=== PATIENT | female | born 1940 | race Caucasian/White ===

== ENCOUNTER → 2018-02-25 | Outpatient (REF) | payer MEDICARE, OTHER ==
[~2018-02-25] MED LIST: ACET-1718 PO; ADVIL; ALEN70TA43 PO; ASCO-182 PO; ASCO-504 PO; CALC-734 PO; CALC500T6 PO; CEP500 PO; CEPH-13 PO; CEPH250C37 PO; CHOL100052 PO; CHOL100062 PO; DOCU-416 PO; GUAI-602 PO; HYDR-317 PO; HYDR-318 PO; HYDR-4309 PO; IBUP200C74 PO; IBUP600T22 PO; LEVO-85 PO; OMEG1CAP99 PO; OMEG500C7 PO; OXYB10TA21 PO; PAR20 PO; PARO30TA71 PO; PER PO; PHEN200T32 PO; TAMO20TA24 PO
== END ==
LOC: ZZSENDIN 12:00
PROVIDERS: ATTEND Urology
DX: C67.9 Malignant neoplasm of bladder, unspecified (principal); R31.9 Hematuria, unspecified
CPT/HCPCS: 88108

== ENCOUNTER 2018-03-03 13:18 | Outpatient (RCR) | payer MEDICARE, OTHER ==
[2015-09-01 13:41] VITALS: BP 123/58
[~2018-03-03 13:18] MED LIST changes: -OMEG1CAP99 PO
[2018-03-04] MEDS ORDERED: OMEG1CAP99 PO (08:25)
[2018-03-05] MEDS ORDERED: HYDR-4309 PO (17:13)
[2018-03-05] MEDS ORDERED: PHEN200T32 PO (17:13)
[2018-03-05] MEDS ORDERED: DOCU-416 PO (17:14)
== END 2018-03-06 14:13 | disposition home or self-care (01) ==
LOC: RAON 13:18
PROVIDERS: ATTEND Radiology Radiation Oncology
DX: C50.911 Malignant neoplasm of unspecified site of right female breast (principal); Z17.0 Estrogen receptor positive status [ER+]; M81.0 Age-related osteoporosis without current pathological fracture; F32.9 Major depressive disorder, single episode, unspecified; E78.00 Pure hypercholesterolemia, unspecified; Z85.828 Personal history of other malignant neoplasm of skin; Z72.0 Tobacco use; Z87.448 Personal history of other diseases of urinary system; F17.200 Nicotine dependence, unspecified, uncomplicated; Z92.3 Personal history of irradiation
CPT/HCPCS: 99212

== ENCOUNTER 2018-03-05 01:19 | Day surgery (SDC) | payer MEDICARE, OTHER ==
[2018-03-03 15:14] LABS: PLATELET COUNT, AUTOMATED 166 K/uL (150-450)
--- NOTE | 2018-03-04 14:45 | HISTORY AND PHYSICAL ---
DATE OF ADMISSION: March 05, 2018 CHIEF COMPLAINT Bladder cancer. 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 She presented with cystoscopy with transurethral resection of these tumors on September 15, 2017. She underwent six week BCG induction treatment from October 15, 2017 through November 19, 2017. Her followup surveillance cystoscopy was performed on February 25, which did reveal approximately 2-3 mm small papillary lesion on the right lateral wall, but was otherwise normal. She is now being brought to the operating room for planned transurethral resection and biopsy of this lesion. Of note, a bladder cytology was obtained and returned no evidence of malignancy. Her last upper tract study was performed in October at her original presentation. She did not have a post-resection mitomycin C after her first resection secondary to concerns of possible tenuous resection site after deep biopsy. PAST MEDICAL HISTORY * Hypercholesterolemia. * Depression. * Breast cancer. * Breast biopsy. * Cataract surgery. * Hemorrhoidectomy. * Hernia. * Thyroid lumpectomy. * Bilateral rotator cuff surgery. * Tonsillectomy. * Colonoscopy. * Skin cancer resection. * Transurethral resection of six papillary bladder tumors on February 13, 2017 of low grade and noninvasive. CURRENT MEDICATIONS * Calcium. * Multivitamin. * Plavix. * Tamoxifen. ALLERGIES OXYCODONE. SOCIAL HISTORY Patient lives in [place], [place]. She has a one pack a day smoking history for 45 years, and she is a . REVIEW OF SYSTEMS Patient denies chest pain, productive cough, fever, chills, nausea, vomiting, gross hematuria, flank pain, change in weight, bleeding disorder or chronic headaches. PHYSICAL EXAMINATION GENERAL: Patient is a well-developed, elderly white female in no acute distress. HEENT: Exam is normocephalic, atraumatic. CHEST: Clear to auscultation bilaterally. CARDIOVASCULAR: Regular rate and rhythm. ABDOMINAL: Soft, nontender. No masses are palpated. : Exam is deferred to the OR. EXTREMITIES: Without clubbing, cyanosis or edema. NEUROLOGIC: Exam is nonfocal. IMPRESSION A 77-year-old white female with a history of intermediate risk of transitional cell carcinoma of the bladder diagnosed in August of this past year, status post six weeks induction treatment with BCG, now with questionable recurrence on right lateral. PLAN We will perform anesthetic cystoscopy, possible transurethral resection and/or biopsy, exam under anesthesia, and possible mitomycin C installation. MTDD
[~2018-03-05] VITALS: Ht 167.6 cm; Wt 48.5 kg
[~2018-03-05 01:19] MED LIST changes: +OMEG1CAP99 PO
[2018-03-05] MEDS ORDERED: LIDOCAINE/SOD BICARB 8.4% SYR ID ONE (11:35)
[2018-03-05] MEDS ORDERED: NORMOSOL R SOLN(*) 1000 ML BAG 1,000 ML IV PRN (11:35)
[2018-03-05] MEDS ORDERED: ceFAZolin(*) 1 GM VIAL 1 GM in NS(*) 0.9% 100 ML ADDVANT BAG 100 ML IVPB ONE (11:35)
[2018-03-05] MEDS ORDERED: MIDAZOLAM 2 MG/2 ML VIAL IVP PRN (11:35)
[2018-03-05] MEDS ORDERED: FAMOTIDINE 20 MG TAB PO ONE (11:35)
[2018-03-05 14:05] VITALS: BP 155/73
[2018-03-05] MEDS ORDERED: fentaNYL CITR 100 MCG/2 ML AMP ONE (14:43)
[2018-03-05] MEDS ORDERED: PROPOFOL EMUL(*) 10MG/ML 20 ML 20 ML ONE (14:43)
[2018-03-05] MEDS ORDERED: DEXAMETHASONE SOD 4 MG/ML VIAL ONE (14:43)
[2018-03-05] MEDS ORDERED: ONDANSETRON 4 MG/2 ML VIAL ONE (14:43)
[2018-03-05] MEDS ORDERED: LIDOCAINE MPF 1% 5 ML VIAL ONE (14:43)
[2018-03-05] MEDS ORDERED: KETAMINE HCL 200 MG/20 ML MDV ONE (16:00)
[2018-03-05] MEDS ORDERED: BELLADONNA ALK/OPIUM 60MG SUPP PR ONE (16:12)
[2018-03-05] MEDS ORDERED: mitoMYcin 20 MG VIAL 40 MG in WATER STERILE FOR INJ 50 ML VL 40 ML IR ONE (16:40)
[2018-03-05 17:00] VITALS: BP 122/51
[2018-03-05] MEDS ORDERED: HYDR-4309 PO (17:13)
[2018-03-05] MEDS ORDERED: PHEN200T32 PO (17:13)
[2018-03-05] MEDS ORDERED: DOCU-416 PO (17:14)
[2018-03-05 17:20] VITALS: BP 122/51
[2018-03-05 17:44] VITALS: BP 120/99
[2018-03-05 17:46] VITALS: BP 118/68
--- NOTE | 2018-03-05 23:16 | OPERATIVE REPORT 1 ---
EVENT DATE: March 05, 2018 SURGEON: Richie Fonseca MD ANESTHESIOLOGIST: Luiz Hoover MD ANESTHESIA: General anesthetic. PREOPERATIVE DIAGNOSIS History of transitional carcinoma of the bladder, now with a small papillary lesion, right lateral wall. POSTOPERATIVE DIAGNOSIS History of transitional carcinoma of the bladder, now with a small papillary lesion, right lateral wall. PROCEDURES PERFORMED 1. Anesthetic cystoscopy. 2. Cold cup biopsy of right lateral wall bladder tumor with fulguration of site. 3. Mitomycin-C intravesical instillation in recovery room. ESTIMATED BLOOD LOSS 5 mL INTRAVENOUS FLUIDS Crystalloids. DRAINS 16-Tamazight Armstrong catheter. COMPLICATIONS None. CONDITION Patient taken to recovery room awake, in stable condition. STATEMENT OF MEDICAL NECESSITY Patient is a 77-year-old white female who was originally found to have six papillary bladder tumors in October of this past year. They were all low grade. However, her number and size of the tumor would put her at an intermittent risk, and therefore, she underwent intravesical BCG induction treatment with six weekly instillations. On her followup surveillance cystoscopy, she was noted to have a very small papillary lesion on the right lateral wall; otherwise normal. Cytology was performed which was normal. She is now being brought to the operating room for planned anesthetic cystoscopy and biopsy with removal of this lesion. DESCRIPTION OF PROCEDURE PERFORMED Patient was brought to the operating room, and after general anesthetic was obtained, she was placed in the dorsal lithotomy position and prepped and draped in the usual sterile manner. Anesthetic cystoscopy was performed with a 21-Tamazight rigid sheath and both the 30- and 70-degree lenses. She had slit- like ureteral orifices, both effluxing clear urine. Her previous TUR scar was noted just superolateral to the right ureteral orifice. The previously noted small papillary bladder lesion was noted on the right lateral wall. It was approximately 2 to 3 mm in size on a pedunculated base. The remainder of the bladder appeared normal with no evidence of erythema or other changes after a thorough inspection. At this point, the cold cup biopsy forceps were introduced , and the lesion was removed with one grasp with the biopsy. It was then saved and sent for permanent analysis. At this point, the continuous flow resectoscope sheath was placed, and the small loop was used to fulgurate the base of the biopsy. The bladder was again inspected. No other lesions or injuries were noted. The scope was removed and a 16-Tamazight Armstrong catheter placed with 10 mL in the balloon. A B and O suppository was given per rectum at the conclusion of the case. She was awakened in the operating room and taken to the recovery area. PLAN The plan will be to instill 40 mg of mitomycin-C in 40 mL of water via her Armstrong catheter, clamp this catheter for one hour, and drain it before she is discharged. We will discharge her home on [place], [place], and [place]. We will plan to see her in the Urology Clinic in approximately one to two weeks to review her pathology and discuss her followup plan. FAISAL
== END 2018-03-05 17:05 | disposition home or self-care (01) ==
LOC: OR 01:19
PROVIDERS: ATTEND Urology
DX: C67.2 Malignant neoplasm of lateral wall of bladder (principal); E78.00 Pure hypercholesterolemia, unspecified; F32.9 Major depressive disorder, single episode, unspecified; Z87.891 Personal history of nicotine dependence; Z85.3 Personal history of malignant neoplasm of breast; Z85.828 Personal history of other malignant neoplasm of skin; Z88.5 Allergy status to narcotic agent
CPT/HCPCS: 36415; 51720; 52235; 81001; 85025; 85610; 85730; 87088; A9270; J1100; J2001; J2405; J2704; J3010; J3490; J9280; 82040; 82247; 82310; 82374; 82435; 82565; 82947; 84075; 84132; 84155; 84295; 84450; 84460; 84520; 88305

== ENCOUNTER → 2018-03-10 | Outpatient (CLI) | payer MEDICARE, OTHER ==
--- NOTE | 2018-03-10 13:49 | RADIOLOGY IMAGING REPORT ---
[place] [facility] [place] CELESTINO COX : [id number] MR: [id number] V: [id number] EXAM DATE: ORDERING PHYSICIAN: BRANDI CHAN TECHNOLOGIST: Laura Mccray PROCEDURE:BILATERAL DIAGNOSTIC DIGITAL MAMMOGRAM WITH CAD ASSISTED INTERPRETATION & 3D TOMOSYNTHESIS COMPARISON:Prior mammograms 03/04/17, 08/01/16, 01/30/16, 06/14/15. INDICATIONS:PRIOR HISTORY BREAST CA FINDINGS: A small amount of fibroglandular tissue is seen throughout the breasts. Postsurgical scaring in the central Right breast from previous lumpectomy again noted. The parenchymal pattern has remained stable throughout the breast. There is no evidence of malignant appearing mass, malignant appearing calcifications or other secondary sign of malignancy in either breast. DIAGNOSTIC CATEGORY 2--BENIGN FINDING. RECOMMENDATIONS: ROUTINE MAMMOGRAM AND CLINICAL EVALUATION. IMPRESSION: BIRADS 2: Benign finding No significant abnormality is seen. Dictated by: Nannette Escalera M.D. on 03/10/2018 at 12:52 Transcribed by: MARGARITA on 03/10/2018 at 13:44 Approved by: Nannette Escalera M.D. on 03/10/2018 at 13:48 [facility]
--- NOTE | 2018-03-10 15:35 | RADIOLOGY IMAGING REPORT ---
FACILITY: [facility] - [place] PATIENT NAME: Therese Lee : 1940 MR: [id number] V: [id number] EXAM DATE: ORDERING PHYSICIAN: BRANDI CHAN TECHNOLOGIST: Location: [facility] - [place] Patient: Therese Lee : 1940 Visit/Account:[id number] Date of Sevice: 03/10/2018 CHEST W/O CONTRAST History: Breast cancer follow up no chest pain TECHNIQUE: Contiguous axial images were performed through the chest to the level of the adrenal gla nds. No IV contrast was administered. Coronal and sagittal reformatting was also performed. Dose Lowe ring Technique One of the following dose optimization techniques was utilized in the performance of this exam: Autom ated exposure control; adjustment of the mA and/or kV according to the patient's size; or use of an i terative reconstruction technique. Specific details can be referenced in the facility's radiology C T exam operational policy. COMPARISON STUDIES: September 11, 2016. Lungs / Pleura: There is a small stable groundglass opacity in the right upper lobe of doubtful sig nificance Mediastinum/nodes: There is been development of several subcarinal lymph nodes. A insurance healthcare representative ly mph node measures 1.9 x 1.1 cm. mediastinal structures not ideally evaluated due to lack of intraven ous contrast Heart and vessels: Coronary artery vascular calcification is again seen. Extensive atherosclerotic plaquing throughout the thoracic aorta and branch vessels also noted in addition to multiple areas of mural thrombus most prominent at the aortic arch and descending thoracic aorta. Again this is not i deally evaluated due to lack of contrast. There is a small pericardial effusion Musculoskeletal / Body wall: Spondylotic changes of the thoracolumbar spine and degenerative change s of the shoulder joints again noted Upper abdomen: Previously noted hemangioma in the posterior right lobe the liver is faintly seen on was better depicted on the prior postcontrast study 1 cm cyst lateral segment left lobe of the liver also again noted IMPRESSION: There is been development of several subcarinal lymph nodes with a insurance healthcare representative lymph node measurin g 1.9 x 1.1 cm. Extensive atherosclerotic disease throughout the thoracic aorta and branch vessels including the carleen nary arteries Small pericardial effusion Additional chronic findings as described Report Dictated By: Nannette Escalera MD at 03/10/2018 3:19 PM Report E-Signed By: Nannette Escalera MD at 03/10/2018 3:32 PM WSN:[id number]
== END ==
LOC: MAMO 10:30
PROVIDERS: ATTEND Radiology Radiation Oncology
DX: R91.8 Other nonspecific abnormal finding of lung field (principal); R59.0 Localized enlarged lymph nodes; I25.10 Atherosclerotic heart disease of native coronary artery without angina pectoris; M47.895 Other spondylosis, thoracolumbar region; I31.3 Pericardial effusion (noninflammatory)
CPT/HCPCS: 71250; 77066

== ENCOUNTER 2018-04-07 10:51 | Outpatient (RCR) | payer MEDICARE, OTHER ==
[2015-09-01 13:41] VITALS: BP 123/58
== END 2018-04-20 13:36 | disposition home or self-care (01) ==
LOC: RAON 10:51
PROVIDERS: ATTEND Radiology Radiation Oncology
DX: C50.811 Malignant neoplasm of overlapping sites of right female breast (principal); Z17.0 Estrogen receptor positive status [ER+]; Z79.810 Long term (current) use of selective estrogen receptor modulators (SERMs); F17.210 Nicotine dependence, cigarettes, uncomplicated; E78.00 Pure hypercholesterolemia, unspecified; Z79.899 Other long term (current) drug therapy
CPT/HCPCS: G0463 ×2; 99212

== ENCOUNTER 2018-06-15 10:22 | Outpatient (RCR) | payer MEDICARE, OTHER ==
[2018-03-19 10:31] VITALS: BP 125/69
--- NOTE | 2018-03-19 20:05 | ONCOLOGY FOLLOW UP NOTE ---
EVENT DATE: March 19, 2018 DIAGNOSES 1. Stage IA ([id number]) right breast cancer. 2. Depression. 3. Hypercholesterolemia. 4. History of skin cancer. 5. History of fibrocystic disease of the breast. CHIEF COMPLAINT The patient is here today for followup of her right breast cancer. ONCOLOGY HISTORY Therese Lee is a 77-year-old postmenopausal female. PRESENTATION 1. Palpable mass of the right breast for the last three to four months. 2. Wide right breast lumpectomy and right sentinel lymph node biopsy done on July 11, 2015. 3. Patient has started adjuvant hormonal therapy with tamoxifen 20 mg daily on August 01, 2015. DIAGNOSTIC EVALUATION 1. Bilateral diagnostic mammogram done on June 14, 2015, was highly suggestive of malignancy with high probability of malignancy. There was a small spiculated area of increased density at the 12 o'clock position of the right breast, just above the areola. 2. Ultrasound of the right breast done on June 14, 2015, did reveal two simple cysts in the 4 and 5 o'clock positions. In the left breast was irregular shadowing. There was a hypoechoic mass at 12 o'clock of the right breast. PATHOLOGY Pathology came back positive for 1.8 cm infiltrating ductal carcinoma, grade 2/ 3 with negative margins, closest margin 0.5 cm. Three sentinel lymph nodes came back negative for metastasis. The tumor was ER/VA positive, HER2/andrez negative by FISH. STAGE Stage IA ([id number]) invasive ductal carcinoma of the right breast. PROCEDURE Ultrasound-guided core needle biopsy of the right breast mass was done on June 21, 2015, and the pathology came back positive for infiltrating ductal carcinoma. TREATMENT 1. The patient started treatment with tamoxifen 20 mg daily on August 01, 2015. 2. The patient currently on adjuvant radiation with her right breast. HISTORY OF PRESENT ILLNESS Patient is here today for followup of her right breast cancer. She has been evaluated by Dr. Kenney recently and the patient was found to have subcarinal lymph nodes up to 1.[address] chest on March 10, 2018. She is complaining of cough with periodic expectoration, but other than that she is doing fine. PAST MEDICAL HISTORY 1. Fibrocystic disease of the breast, biopsy proven. 2. Hypercholesterolemia, not on treatment. 3. Skin cancer of the nasal area. 4. Depression. PAST SURGICAL HISTORY 1. Tonsillectomy. 2. Hernia repair of the left groin. 3. Hemorrhoidectomy. 4. Breast biopsy for fibrocystic disease. 5. Right and left rotator cuff injury surgery. 6. Resection of a lump from the thyroid. 7. Cataract surgery. 8. Right rotator cuff surgery on April 19, 2016. 9. Endocervical curettage with endometrial biopsy and curettage done on September 20, 2016. 10. Surgery for strangulated hernia on December 17, 2016. SOCIAL HISTORY The patient is a . She has two sons. She is retired from secretarial work. Denies any abuse of alcohol or illicit drugs. She is a smoker. She smoked about one pack a day for 45 years and continues to smoke. FAMILY HISTORY Maternal grandfather had what looks like head and neck cancer in the past. CURRENT MEDICATIONS 1. Paroxetine 30 mg daily. 2. Vitamin D and calcium supplement daily. 3. Tamoxifen 20 mg daily. 4. Alendronate 70 mg weekly. 5. Ibuprofen p.r.n. 6. Fish oil twice daily. 7. Maxiphen tablet twice daily. ALLERGIES No known drug allergies. REVIEW OF SYSTEMS CONSTITUTIONAL: No appetite or weight change. No fever, chills or sweating. No recent infection. HEENT: Ears: No tinnitus or hearing problem. Nose: No nasal discharge or epistaxis. Throat: No sore throat or mouth ulcers. Eyes: No diplopia or visual changes. RESPIRATORY: Patient has cough with periodic expectoration. Other than that she is doing fine. CARDIOVASCULAR: No chest pain, orthopnea, or paroxysmal nocturnal dyspnea (PND) . No edema. No palpitations. GASTROINTESTINAL: She has constipation. GENITOURINARY: She had one episode of hematuria in May 2017, and the patient was seen by her primary care at that time. MUSCULOSKELETAL: No pain in the muscles, joints or bones. NEUROLOGICAL: No tingling or numbness in the hands or feet. No headaches or convulsions. HEMATOLOGIC/LYMPHATIC: She is weak, tired and fatigued. No enlarged lymph nodes. SKIN: No skin rash or lumps. PSYCHIATRIC: No anxiety or depression. PHYSICAL EXAMINATION GENERAL: Looks stable. Well-developed, well-nourished, and in no acute distress. VITAL SIGNS: Blood pressure 125/69, pulse 78 per minute, respirations 16 per minute, temperature 97, pulse ox 93% on room air. HEENT: Head: Atraumatic. No sinus tenderness to palpation. Eyes: No icterus or conjunctivitis. Mouth and throat: No oral thrush or mucositis. NECK: Supple. No cervical or supraclavicular lymphadenopathy. LUNGS: Clear to auscultation and percussion bilaterally. HEART: Regular rate and rhythm. No gallops, murmurs, clicks or rubs. ABDOMEN: There is a mass at the site of her surgery in the right inguinal area which is firm in consistency, which could represent a lymph node or a seroma after her surgery. EXTREMITIES: No cyanosis, clubbing or edema. LYMPHATICS: No peripheral lymphadenopathy. NEUROLOGICAL: Conscious, alert and oriented times three. No focal motor or sensory deficits. PSYCHIATRIC: Mood and affect appear normal. SKIN: No skin rash, bruise or purpuric eruption. DIAGNOSTIC DATA CT chest on March 10, 2018 showed subcarinal lymph nodes up to 1.9 cm. Mammogram on March 10, 2018 was benign. CBC showed a white count of 7.4, hemoglobin 17.2, hematocrit 49.8, platelets 166 ,000. Chem panel is totally normal. ASSESSMENT 1. Stage IA (pT1c pN0 cM0) invasive ductal carcinoma of the right breast status post wide localization lumpectomy and right sentinel lymph node biopsy done July 11, 2015 for 1.8 cm invasive ductal carcinoma ER/VA positive, HER2/ andrez negative by FISH. Lymph nodes were negative. Patient completed adjuvant radiation therapy and started adjuvant hormonal therapy with tamoxifen 20 mg daily on August 01, 2015. She is doing fine currently, but patient had a recent mammogram which was benign, and her CT chest on March 10, 2018 did reveal subcarinal lymph nodes up to 1.9 cm. Patient is scheduled for PET/CT scan to be done on March 23, 2018. In the meantime, I am planning to continue Tamoxifen 20 mg daily, and I will see her in three months with CBC, chem panel and tumor marker with CA 27-29, CA 15-3. I will check her tumor markers with CA 27-29, CA 15-3 and CEA today. If the PET scan shows evidence of recurrence then I will see the patient next week for further evaluation and management. 2. Osteoporosis by DEXA scan done July 20, 2015 with osteoporosis of the left hip, currently on vitamin D and Fosamax. I am planning to repeat her DEXA scan. 3. Depression, on treatment with paroxetine. 4. History of skin cancer. PLAN 1. Check CEA, CA 27-29 and CA 15-3. 2. Patient to return in three months with CBC, chem panel, CA 27-29 and CA 15- 3. 3. Tamoxifen 20 mg daily. 4. Await the result of the PET scan scheduled on March 23, 2018. 5. Patient is to contact us for any new concerns or complaints. 6. Continue vitamin D and Fosamax. MTDD
[2018-06-15 11:15] LABS: PLATELET COUNT, AUTOMATED 179 K/uL (150-450)
== END 2018-06-16 ==
LOC: SPU 10:22
PROVIDERS: ATTEND Internal Medicine Hematology
DX: C50.911 Malignant neoplasm of unspecified site of right female breast (principal); Z17.0 Estrogen receptor positive status [ER+]; Z79.810 Long term (current) use of selective estrogen receptor modulators (SERMs); M81.0 Age-related osteoporosis without current pathological fracture; F32.9 Major depressive disorder, single episode, unspecified; Z85.828 Personal history of other malignant neoplasm of skin; E78.00 Pure hypercholesterolemia, unspecified; Z78.0 Asymptomatic menopausal state; K59.00 Constipation, unspecified; R53.83 Other fatigue; R53.1 Weakness
CPT/HCPCS: 36415; 82378; 85025; 86300; G0463; 82040; 82247; 82310; 82374; 82435; 82565; 82947; 84075; 84132; 84155; 84295; 84450; 84460; 84520; 99212

== ENCOUNTER 2018-06-19 10:21 | Outpatient (RCR) | payer MEDICARE, OTHER ==
[2018-06-19 10:32] VITALS: BP 131/80
--- NOTE | 2018-06-19 17:06 | ONCOLOGY FOLLOW UP NOTE ---
EVENT DATE: June 19, 2018 DIAGNOSES 1. Stage IA ([id number]) right breast cancer. 2. Depression. 3. Hypercholesterolemia. 4. History of skin cancer. 5. History of fibrocystic disease of the breast. CHIEF COMPLAINT The patient is here today for followup of her right breast cancer. ONCOLOGY HISTORY Therese Lee is a 77-year-old postmenopausal female. PRESENTATION 1. Palpable mass of the right breast for the last three to four months. 2. Wide right breast lumpectomy and right sentinel lymph node biopsy done on July 11, 2015. 3. Patient has started adjuvant hormonal therapy with tamoxifen 20 mg daily on August 01, 2015. DIAGNOSTIC EVALUATION 1. Bilateral diagnostic mammogram done on June 14, 2015, was highly suggestive of malignancy with high probability of malignancy. There was a small spiculated area of increased density at the 12 o'clock position of the right breast, just above the areola. 2. Ultrasound of the right breast done on June 14, 2015, did reveal two simple cysts in the 4 and 5 o'clock positions. In the left breast was irregular shadowing. There was a hypoechoic mass at 12 o'clock of the right breast. PATHOLOGY Pathology came back positive for 1.8 cm infiltrating ductal carcinoma, grade 2/ 3 with negative margins, closest margin 0.5 cm. Three sentinel lymph nodes came back negative for metastasis. The tumor was ER/HI positive, HER2/andrez negative by FISH. STAGE Stage IA ([id number]) invasive ductal carcinoma of the right breast. PROCEDURE Ultrasound-guided core needle biopsy of the right breast mass was done on June 21, 2015, and the pathology came back positive for infiltrating ductal carcinoma. TREATMENT 1. The patient started treatment with tamoxifen 20 mg daily on August 01, 2015. 2. The patient currently on adjuvant radiation with her right breast. HISTORY OF PRESENT ILLNESS Patient is here today for followup of her right breast cancer. She is doing fine currently. She is complaining of occasional constipation and occasional weakness and fatigue. PAST MEDICAL HISTORY 1. Fibrocystic disease of the breast, biopsy proven. 2. Hypercholesterolemia, not on treatment. 3. Skin cancer of the nasal area. 4. Depression. PAST SURGICAL HISTORY 1. Tonsillectomy. 2. Hernia repair of the left groin. 3. Hemorrhoidectomy. 4. Breast biopsy for fibrocystic disease. 5. Right and left rotator cuff injury surgery. 6. Resection of a lump from the thyroid. 7. Cataract surgery. 8. Right rotator cuff surgery on April 19, 2016. 9. Endocervical curettage with endometrial biopsy and curettage done on September 20, 2016. 10. Surgery for strangulated hernia on December 17, 2016. SOCIAL HISTORY The patient is a . She has two sons. She is retired from secretarial work. Denies any abuse of alcohol or illicit drugs. She is a smoker. She smoked about one pack a day for 45 years and continues to smoke. FAMILY HISTORY Maternal grandfather had what looks like head and neck cancer in the past. CURRENT MEDICATIONS 1. Paroxetine 30 mg daily. 2. Vitamin D and calcium supplement daily. 3. Tamoxifen 20 mg daily. 4. Alendronate 70 mg weekly. 5. Ibuprofen p.r.n. 6. Fish oil twice daily. 7. Maxiphen tablet twice daily. ALLERGIES No known drug allergies. REVIEW OF SYSTEMS CONSTITUTIONAL: No appetite or weight change. No fever, chills or sweating. No recent infection. HEENT: Ears: No tinnitus or hearing problem. Nose: No nasal discharge or epistaxis. Throat: No sore throat or mouth ulcers. Eyes: No diplopia or visual changes. RESPIRATORY: Patient has cough with periodic expectoration. Other than that she is doing fine. CARDIOVASCULAR: No chest pain, orthopnea, or paroxysmal nocturnal dyspnea (PND) . No edema. No palpitations. GASTROINTESTINAL: She has occasional constipation. GENITOURINARY: She had one episode of hematuria in May 2017, and the patient was seen by her primary care at that time. MUSCULOSKELETAL: No pain in the muscles, joints or bones. NEUROLOGICAL: No tingling or numbness in the hands or feet. No headaches or convulsions. HEMATOLOGIC/LYMPHATIC: She has occasional weakness and fatigue. SKIN: No skin rash or lumps. PSYCHIATRIC: No anxiety or depression. PHYSICAL EXAMINATION GENERAL: Looks stable. Well-developed, well-nourished, and in no acute distress. VITAL SIGNS: Blood pressure 131/80, pulse 91 per minute, respirations 16 per minute, temperature 97.5, pulse ox 91% on room air. HEENT: Head: Atraumatic. No sinus tenderness to palpation. Eyes: No icterus or conjunctivitis. Mouth and throat: No oral thrush or mucositis. NECK: Supple. No cervical or supraclavicular lymphadenopathy. LUNGS: Clear to auscultation and percussion bilaterally. HEART: Regular rate and rhythm. No gallops, murmurs, clicks or rubs. ABDOMEN: There is a mass at the site of her surgery in the right inguinal area which is firm in consistency, which could represent a lymph node or a seroma after her surgery. EXTREMITIES: No cyanosis, clubbing or edema. LYMPHATICS: No peripheral lymphadenopathy. NEUROLOGICAL: Conscious, alert and oriented times three. No focal motor or sensory deficits. PSYCHIATRIC: Mood and affect appear normal. SKIN: No skin rash, bruise or purpuric eruption. DIAGNOSTIC DATA CBC showed white count of 6.2, hemoglobin 15.7, hematocrit 45.8, platelets 179, 000. Chem panel is totally normal except total protein 6.1. CA 15-3 is normal at 13 and CA 27-29 is normal at 12.8. ASSESSMENT 1. Stage IA (pT1c pN0 cM0) invasive ductal carcinoma of the right breast status post wire localization lumpectomy and right sentinel lymph node biopsy done July 11, 2015 for 1.8 cm invasive ductal carcinoma ER/HI positive, HER2/ andrez negative by FISH. Lymph nodes were negative. Patient completed adjuvant radiation therapy and started adjuvant hormonal therapy with tamoxifen 20 mg daily on August 01, 2015. She is doing fine currently. Her CT chest on March 10, 2018 did reveal subcarinal lymph nodes.up to 1.9 cm. Patient had a PET/CT scan March 23, 2018 which actually did not show any evidence of metastatic disease. There was indeterminate 5 mm left lower lobe pulmonary nodule, but it was PET negative. There was some colonic inflammation and diverticulosis. Her tumor markers with CA 27-29 and CA 15-3 are normal currently. I am planning to continue tamoxifen 20 mg daily for a total of 10 years. I will see her again in four months with CBC, chem panel, CA 27-29, CA 15-3 and CEA. 2. Osteoporosis by DEXA scan done July 20, 2015 which showed osteoporosis of the left hip, currently on vitamin D and Fosamax. Will continue to monitor DEXA scan. 3. Depression, on treatment with paroxetine. 4. History of skin cancer. PLAN 1. Continue followup. 2. Continue tamoxifen 20 mg daily. 3. Patient to return in four months with CBC, chem panel, CA 27-29,CA 15-3 and CEA. . 4. Patient is to contact us for any new concerns or complaints. MTDD
== END 2018-06-25 13:59 | disposition home or self-care (01) ==
LOC: ONC 10:21
PROVIDERS: ATTEND Internal Medicine Hematology
DX: C50.911 Malignant neoplasm of unspecified site of right female breast (principal); Z17.0 Estrogen receptor positive status [ER+]; Z79.810 Long term (current) use of selective estrogen receptor modulators (SERMs); M81.0 Age-related osteoporosis without current pathological fracture; F32.9 Major depressive disorder, single episode, unspecified; Z85.828 Personal history of other malignant neoplasm of skin; E78.00 Pure hypercholesterolemia, unspecified; Z78.0 Asymptomatic menopausal state; K59.00 Constipation, unspecified; R53.83 Other fatigue; R53.1 Weakness
CPT/HCPCS: 99212

== ENCOUNTER → 2018-07-29 | Outpatient (REF) | payer MEDICARE, OTHER | LOC: ZZSENDIN 14:30 | PROVIDERS: ATTEND Urology | DX: C67.9 Malignant neoplasm of bladder, unspecified (principal) | CPT/HCPCS: 88108 ==

== ENCOUNTER 2018-10-19 17:52 | Outpatient (RCR) | payer MEDICARE, OTHER ==
[2018-10-20 13:24] VITALS: BP 122/68
--- NOTE | 2018-10-20 21:51 | ONCOLOGY FOLLOW UP NOTE ---
EVENT DATE: October 20, 2018 CHIEF COMPLAINT/REASON FOR VISIT Patient is here to go over the results of a recent CT scan of the thorax. ONCOLOGY HISTORY 1. Stage IA, ER-positive, right-sided breast carcinoma, status post lumpectomy, followed by radiation therapy with the patient presently on tamoxifen. 2. History of multiply recurrent superficial bladder carcinoma, presently under management by Dr. Fonseca. 3. Left lung small pulmonary nodule and nonspecific subcarinal lymph node of uncertain significance. These areas are being followed only at this time. Ongoing history of tobacco use. INTERVAL HISTORY Patient is a joelle, 77-year-old female who was seen in the Oncology Department for followup appointment. This is my first visit with the patient, who was previously followed by Dr. Kenney. She is here to go over the results of a recent CT scan of the thorax. She denies any chest pain or significant cough. No hemoptysis. She denies any breast pain or discomfort. Patient is taking tamoxifen at 20 mg a day without significant adverse effects. CT scan of the thorax was obtained on 10/19/18 and demonstrated stable findings going back to 2016. There is a small subcarinal lymph node. No new pulmonary nodules. The largest nodule is stable in the left lower lobe at 5 mm. Images were directly reviewed with the patient. MEDICATIONS 1. Calcium carbonate 500 mg a day. 2. Tamoxifen 20 mg a day. 3. Vitamin D. 4. Paroxetine 30 mg a day. ALLERGIES OXYCODONE, LEVOFLOXACIN, STERI-STRIPS. PAST MEDICAL HISTORY 1. Right-sided breast carcinoma in 2014. 2. History of transitional cell carcinoma of the bladder. 3. History of depression. 4. Hypercholesterolemia. SURGICAL HISTORY 1. Previous lumpectomy. 2. Prior cataract surgery. 3. Hemorrhoidectomy. 4. Hernia repair of the left groin. 5. Resection of benign mass of the thyroid gland. 6. Right and left rotator cuff surgery. 7. Prior tonsillectomy. FAMILY HISTORY Maternal grandfather had head and neck cancer. SOCIAL HISTORY Patient is . She presently smokes one pack per day for the last 45 years. She has two sons. Retired from secretarial work. COMPREHENSIVE REVIEW OF SYSTEMS Minor fatigue. No headaches. No bone pain. No specific respiratory complaints. No GI complaints today. PHYSICAL EXAMINATION GENERAL: Joelle 77-year-old female with thin build. VITAL SIGNS: Weight 115. BP 122/68, pulse 76. LUNGS: Clear bilaterally. No lymphadenopathy. HEART: Sounds regular with occasional ectopy. BREASTS: Deferred. ABDOMEN: No gross organomegaly. IMPRESSION AND PLAN Benign pulmonary nodules on the recent CT of the thorax. No significant tire changer the last two years. Patient will be released from the Radiation Oncology Clinic at this time. She does have an appointment to follow up with Dr. James Frey in the next several months with new blood work. She will continue her regular mammograms. She will see Dr. Fonseca in December for next urologic assessment. Clinical visit approximately 40 minutes, and all questions answered to the patient's satisfaction today. FAISAL
== END 2018-11-27 15:37 | disposition home or self-care (01) ==
LOC: RAON 17:52
PROVIDERS: ATTEND Radiology Radiation Oncology
DX: C50.011 Malignant neoplasm of nipple and areola, right female breast (principal); Z17.0 Estrogen receptor positive status [ER+]; R91.1 Solitary pulmonary nodule
CPT/HCPCS: 99212

== ENCOUNTER → 2018-10-19 | Outpatient (CLI) | payer MEDICARE, OTHER ==
[~2018-10-19] MED LIST changes: -HYDR-4309 PO; +HYDR-653 PO
--- NOTE | 2018-10-19 18:47 | RADIOLOGY IMAGING REPORT ---
FACILITY: [facility] [place] PATIENT NAME: Therese Lee : 1940 MR: [id number] V: [id number] EXAM DATE: ORDERING PHYSICIAN: KAVYA CERVANTES TECHNOLOGIST: Location: [facility] [place] Patient: Therese Lee : 1940 Visit/Account:[id number] Date of Sevice: 10/19/2018 CHEST W/O CONTRAST HISTORY: Breast cancer; follow-up. TECHNIQUE: CT chest without intravenous contrast. One of the following dose optimization techniques was utilized in the performance of this exam: Autom ated exposure control; adjustment of the mA and/or kV according to the patient's size; or use of an i terative reconstruction technique. Specific details can be referenced in the facility's radiology C T exam operational policy. CONTRAST: None. COMPARISON: 03/10/2018, 09/11/2016 FINDINGS: Heart/vessels: Atherosclerosis aorta and its branch vessels including coronary arteries. Mediastinum: Negative. Lymph nodes: No bulky adenopathy. Previously described subcarinal adenopathy likely corresponds with fluid attenuating focus within a pericardial recess and is not significantly changed from remote myranda or exams. Lungs/pleura: Mild centrilobular emphysema, upper lung zone predominant. Mild benign-appearing biapi keya pleural parenchymal pulmonary scarring. Several bilateral stable pulmonary nodules, the largest o n the left within lower lobe measuring 5 mm (4/257). Stable groundglass focus posterior lateral right upper lobe (3/24). No new or enlarging pulmonary nodule. No infiltrate or pleural fluid. Visualized upper abdomen: Incompletely visualized but grossly unchanged low attenuating lesion later al segment left hepatic lobe. Incompletely visualized but grossly unchanged exophytic low attenuating lesion posterior cortex upper pole left kidney. Visualized pancreas mildly atrophic. Bones/soft tissues: Sequela of right lumpectomy. Stable sclerotic lesion left posterior body/pedicle T3, likely bone island. Disc and facet degenerative changes visualized thoracolumbar spine, most sev ere within the visualized upper lumbar region. No suspicious osseous lesion. IMPRESSION: 1. No gross unenhanced CT findings of concern for metastatic disease to the chest. 2. Previously suspected subcarinal adenopathy now appears more likely to have represented fluid withi n a pericardial recess and is not significantly changed from prior studies dating back to at least 20 16. No bulky adenopathy. 3. Several pulmonary nodules and a right upper lobe groundglass focus, each unchanged from remote myranda or exam consistent with benign processes. 4. Other chronic and/or benign-appearing changes detailed above including coronary atherosclerosis. Report Dictated By: David Sharpe MD at 10/19/2018 6:32 PM Report E-Signed By: David Sharpe MD at 10/19/2018 6:43 PM WSN:[id number]
== END ==
LOC: CT 15:42
PROVIDERS: ATTEND Radiology Radiation Oncology
DX: I25.10 Atherosclerotic heart disease of native coronary artery without angina pectoris (principal); R91.8 Other nonspecific abnormal finding of lung field
CPT/HCPCS: 71250

== ENCOUNTER → 2018-12-30 | Outpatient (REF) | payer MEDICARE, OTHER | LOC: ZZSENDIN 10:40 | PROVIDERS: ATTEND Urology | DX: C67.9 Malignant neoplasm of bladder, unspecified (principal) | CPT/HCPCS: 88108 ==

== ENCOUNTER 2019-05-13 12:14 | Outpatient (RCR) | payer MEDICARE, OTHER ==
[2019-05-10 13:35] VITALS: BP 120/60
[2019-05-10 14:06] LABS: PLATELET COUNT, AUTOMATED 170 K/uL (150-450)
[2019-05-13 12:23] VITALS: BP 137/78
--- NOTE | 2019-05-13 15:06 | [facility] ONCOLOGY NOTE ---
EVENT DATE: May 13, 2019 DIAGNOSIS 1. Stage IA ([id number]) right breast cancer. 2. Depression. 3. Hypercholesterolemia. 4. History of skin cancer. 5. History of fibrocystic disease of the breast. CHIEF COMPLAINT Patient is here today for followup of her right breast cancer. ONCOLOGY HISTORY Therese Lee is a 78-year-old postmenopausal female. PRESENTATION 1. Palpable mass of the right breast for the last three to four months. 2. Wide right breast lumpectomy and right sentinel lymph node biopsy done on July 11, 2015. 3. Patient has started adjuvant hormonal therapy with tamoxifen 20 mg daily on August 01, 2015. DIAGNOSTIC EVALUATION 1. Bilateral diagnostic mammogram done on June 14, 2015, was highly suggestive of malignancy with high probability of malignancy. There was a small spiculated area of increased density at the 12 o'clock position of the right breast, just above the areola. 2. Ultrasound of the right breast done on June 14, 2015, did reveal two simple cysts in the 4 and 5 o'clock positions. In the left breast was irregular shadowing. There was a hypoechoic mass at 12 o'clock of the right breast. PATHOLOGY Pathology came back positive for 1.8 cm infiltrating ductal carcinoma, grade 2/3 with negative margins, closest margin 0.5 cm. Three sentinel lymph nodes came back negative for metastasis. The tumor was ER/UT positive, HER2/andrez negative by FISH. STAGE Stage IA ([id number]) invasive ductal carcinoma of the right breast. PROCEDURE Ultrasound-guided core needle biopsy of the right breast mass was done on June 21, 2015, and the pathology came back positive for infiltrating ductal carcinoma. TREATMENT 1. The patient started treatment with tamoxifen 20 mg daily on August 01, 2015. 2. The patient currently on adjuvant radiation with her right breast. HISTORY OF PRESENT ILLNESS Patient is here today for followup of her right breast cancer. She is complaining of some dry cough. She has some vaginal discharge attributed to her use of Tamoxifen but other than that she is stable. PAST MEDICAL HISTORY 1. Fibrocystic disease of the breast, biopsy proven. 2. Hypercholesterolemia, not on treatment. 3. Skin cancer of the nasal area. 4. Depression. PAST SURGICAL HISTORY 1. Tonsillectomy. 2. Hernia repair of the left groin. 3. Hemorrhoidectomy. 4. Breast biopsy for fibrocystic disease. 5. Right and left rotator cuff injury surgery. 6. Resection of a lump from the thyroid. 7. Cataract surgery. 8. Right rotator cuff surgery on April 19, 2016. 9. Endocervical curettage with endometrial biopsy and curettage done on September 20, 2016. 10. Surgery for strangulated hernia on December 17, 2016. SOCIAL HISTORY The patient is a . She has two sons. She is retired from secretarial work. Denies any abuse of alcohol or illicit drugs. She is a smoker. She smoked about one pack a day for 45 years and continues to smoke. FAMILY HISTORY Maternal grandfather had what looks like head and neck cancer in the past. CURRENT MEDICATIONS 1. Paroxetine 30 mg daily. 2. Vitamin D and calcium supplement daily. 3. Tamoxifen 20 mg daily. 4. Alendronate 70 mg weekly. 5. Ibuprofen p.r.n. 6. Fish oil twice daily. 7. Maxiphen tablet twice daily. ALLERGIES No known drug allergies. REVIEW OF SYSTEMS CONSTITUTIONAL: No appetite or weight change. No fever, chills or sweating. No recent infection. HEENT: Ears: No tinnitus or hearing problem. Nose: No nasal discharge or epistaxis. Throat: No sore throat or mouth ulcers. Eyes: No diplopia or visual changes. RESPIRATORY: She has some dry cough. CARDIOVASCULAR: No chest pain, orthopnea, or paroxysmal nocturnal dyspnea (PND). No edema. No palpitations. GASTROINTESTINAL: Patient has some constipation. GENITOURINARY: She has some vaginal discharge from her Tamoxifen use. MUSCULOSKELETAL: No pain in the muscles, joints or bones. NEUROLOGICAL: No tingling or numbness in the hands or feet. No headaches or convulsions. HEMATOLOGIC/LYMPHATIC: She has occasional fatigue. SKIN: No skin rash or lumps. PSYCHIATRIC: No anxiety or depression. PHYSICAL EXAMINATION GENERAL: Looks stable. Well-developed, well-nourished, and in no acute distress. VITAL SIGNS: Blood pressure 157/78, pulse 91 per minute, respirations 16 per minute, temperature 98, pulse oximetry 93% on room air. HEENT: Head: Atraumatic. No sinus tenderness to palpation. Eyes: No icterus or conjunctivitis. Mouth and throat: No oral thrush or mucositis. NECK: Supple. No cervical or supraclavicular lymphadenopathy. LUNGS: Clear to auscultation and percussion bilaterally. HEART: Regular rate and rhythm. No gallops, murmurs, clicks or rubs. ABDOMEN: Soft and lax. No tenderness. No hepatosplenomegaly. No masses. EXTREMITIES: No cyanosis, clubbing or edema. LYMPHATICS: No peripheral lymphadenopathy. NEUROLOGICAL: Conscious, alert and oriented times three. No focal motor or sensory deficits. PSYCHIATRIC: Mood and affect appear normal. SKIN: No skin rash, bruise or purpuric eruption. DIAGNOSTIC DATA CBC showed white count of 6.9, hemoglobin 16, hematocrit 48, platelet 170,000. Chem panel is normal. CEA is 7.2, up from 6.4. CA15-3 is 14, which is stable and CA27.29 is 15.5, down from 17.8. ASSESSMENT 1. Stage IA (pT1c pN0 cM0) invasive ductal carcinoma of the right breast, status post wire localization lumpectomy and right sentinel lymph node biopsy, done July 11, 2015, for 1.8 cm invasive ductal carcinoma, ER/UT positive, HER2/andrez negative by FISH. Lymph nodes were negative. Patient completed adjuvant radiation therapy and started adjuvant hormonal therapy with tamoxifen 20 mg on August 01, 2015. She is doing fine currently, tolerating treatment very well except for some vaginal discharge due to tamoxifen. CT chest on March 10, 2018, did reveal subcarinal lymph node up to 1.9 cm. PET/CT scan March 23, 2018 did not show any evidence of metastatic disease. There was indeterminate 5 mm left lower lobe pulmonary nodule and it was PET negative. Repeat CT chest October 19, 2018 did not show any changes and the subcarinal lymph node is thought to be due to pericardial fluid. She is doing very well currently. Her tumor marker with CA 15-3 and CA27.29 are within the normal range and stable. I am planning to see her in six months with CBC, chem panel, CEA, CA27.29, CA 15- 3. 2. Rising CEA. Her current CEA is 7.2, up from 6.4 last visit. Patient did not have any colonoscopy since 2008. I am planning to refer her to Dr. Jones, her surgeon, who is going to do a hernia repair for her soon, to do a colonoscopy for screening at that time. 3. Osteoporosis by DEXA scan done July 20, 2015, currently on vitamin D and Fosamax. 4. Depression, on treatment with paroxetine. 5. History of skin cancer. PLAN 1. Continue tamoxifen 20 mg daily. 2. Refer to Dr. Jones for colonoscopy. 3. Patient to return in six months with CBC, chem panel, CA 27.29, CA 15-3 and CEA. 4. Patient to contact us for any new concern or complaints. MTDD
[2019-05-25] MEDS ORDERED: TRAM-420 PO (10:24)
== END 2019-05-31 14:50 | disposition home or self-care (01) ==
LOC: ONC 12:14
PROVIDERS: ATTEND Internal Medicine Hematology
DX: C50.911 Malignant neoplasm of unspecified site of right female breast (principal); Z17.0 Estrogen receptor positive status [ER+]; Z79.810 Long term (current) use of selective estrogen receptor modulators (SERMs); Z92.3 Personal history of irradiation; M81.0 Age-related osteoporosis without current pathological fracture; Z79.899 Other long term (current) drug therapy; F32.9 Major depressive disorder, single episode, unspecified; Z85.828 Personal history of other malignant neoplasm of skin; R05 Cough; K59.00 Constipation, unspecified; F17.210 Nicotine dependence, cigarettes, uncomplicated
CPT/HCPCS: 36415; 82378; 85025; 86300; G0463; 82040; 82247; 82310; 82374; 82435; 82565; 82947; 84075; 84132; 84155; 84295; 84450; 84460; 84520; 99212

== ENCOUNTER 2019-05-25 01:31 | Day surgery (SDC) | payer MEDICARE, OTHER ==
[~2019-05-25] VITALS: Ht 167.6 cm; Wt 50.8 kg
[2019-05-25] VITALS (8 sets, daily range): BP systolic 91–148; BP diastolic 44–96
[2019-05-25] MEDS ORDERED: LIDOCAINE MPF 1% 5 ML VIAL ONE (07:29)
[2019-05-25] MEDS ORDERED: PROPOFOL EMUL(*) 10MG/ML 20 ML 20 ML ONE (07:29)
[2019-05-25] MEDS ORDERED: ROCURONIUM BR 10 MG/ML 5 ML SY 5 ML ONE (07:29)
[2019-05-25] MEDS ORDERED: DEXAMETHASONE SOD 4 MG/ML VIAL ONE (07:29)
[2019-05-25] MEDS ORDERED: fentaNYL CITR 250 MCG/5 ML AMP ONE (07:29)
[2019-05-25] MEDS ORDERED: KETAMINE HCL-NS 50 MG/5 ML SYR ONE (07:29)
[2019-05-25] MEDS ORDERED: ONDANSETRON 4 MG/2 ML VIAL ONE (07:29)
[2019-05-25] MEDS ORDERED: SUGAMMADEX SOD 200 MG/2 ML SDV ONE (07:29)
[2019-05-25] MEDS ORDERED: BUPIVACAINE/EPI 0.5% 50ML VIAL INFIL ONE (07:38)
[2019-05-25] MEDS ORDERED: NORMOSOL R SOLN(*) 1000 ML BAG 1,000 ML IV PRN (07:50)
[2019-05-25] MEDS ORDERED: MIDAZOLAM 2 MG/2 ML VIAL IVP PRN (07:50)
[2019-05-25] MEDS ORDERED: LIDOCAINE/SOD BICARB 8.4% SYR ID ONE (07:50)
[2019-05-25] MEDS ORDERED: ceFAZolin(*) 2GM/D5W 50ML 50 ML IVPB ONE (07:50)
[2019-05-25] MEDS ORDERED: FAMOTIDINE 20 MG TAB PO ONE (07:50)
[2019-05-25] MEDS ORDERED: ESMOLOL 10 MG/ML 10ML SDV ONE (09:00)
[2019-05-25] MEDS ORDERED: KETAMINE HCL 200 MG/20 ML MDV ONE (09:14)
[2019-05-25] MEDS ORDERED: TRAM-420 PO (10:24)
--- NOTE | 2019-05-25 10:26 | Short(Outpt) Discharge Summary ---
Discharge Summary Reason for Hosp/Final Diag: (1) Left inguinal hernia Hospital Course & Plan: pt presented for left ing hernia repair. she tolerated the procedure well. she will be discharged home when criteria met. Departure Discharge to: Home Discharge Instructions Home Meds Active Scripts Tramadol Hcl (TRAMADOL HCL) 50 Mg Tablet, 50 MG PO Q6H PRN for PAIN, #14 TAB Prov:SHAWNEE PRATT 05/25/19 Reported Medications Calcium Carbonate (CALCIUM) 500 Mg Tablet, 500 MG PO DAILY 03/02/18 Tamoxifen Citrate (TAMOXIFEN CITRATE) 20 Mg Tablet, 20 MG PO DAILY 10/30/15 Cholecalciferol (Vitamin D3) (VITAMIN D) 1,000 Unit Tablet, 1000 UNIT PO QDAY 08/04/15 Paroxetine Hcl (PAROXETINE HCL) 30 Mg Tablet, 30 MG PO QDAY 07/07/15 Diet: Regular Activity: No Heavy Lifting Special Instructions: no lifting more than 15 lbs for 2 wks. ok to shower tomorrow. take stool softener while taking pain meds. f/u dr. bri pratt 2 wks ([phone]). SHAWNEE PRATT May 25, 2019 10:26
--- NOTE | 2019-05-25 10:31 | Post Operative Progress Note ---
Post Operative Progress Note Date: May 25, 2019 Time: 10:24 Surgeon: dr. bri pratt #[id number] Welfare Adviser: none Anesthesia: gen, local dr. joshi Pre-Op Diagnosis: left ing hernia Post-Op Diagnosis: left direct and fem hernias Findings: as above Procedure(s): robotic left ing hernia repair with mesh Complications: none Estimated Blood Loss: minimal Date OP Note Dictated: May 25, 2019 Time OP Note Dictated: 10:25 SHAWNEE PRATT May 25, 2019 10:31
--- NOTE | 2019-05-25 11:00 | OPERATIVE REPORT 1 ---
EVENT DATE: May 25, 2019 SURGEON: Tylor Jones MD ANESTHESIOLOGIST: Luiz Hoover MD ANESTHESIA: General with local. FISH ROE PROCESSOR: None. PREOPERATIVE DIAGNOSIS Left inguinal hernia. POSTOPERATIVE DIAGNOSIS Left direct and femoral hernias. PROCEDURE PERFORMED Robotic left inguinal hernia repair with mesh. FLUIDS IV crystalloids. ESTIMATED BLOOD LOSS Minimal. SPECIMENS None. COMPLICATIONS None. INDICATIONS This is an 78-year old female with left groin pain for approximately two years. On physical exam, findings were consistent with a left inguinal hernia. CT scan showed a left inguinal hernia as well. Risks and benefits of the procedure were explained and consent was signed. DESCRIPTION OF PROCEDURE The patient was taken to the operating room and placed in the supine position. General anesthesia was administered per the Anesthesia team. The patient was prepped and draped in normal sterile fashion. Local anesthesia was injected into the dermis above the umbilicus and a small incision was made. Umbilical stump was grasped and elevated. Veress needle was inserted. Pneumoperitoneum was achieved. Veress needle was removed. An 8 mm port was advanced. After injecting local analgesia under direct vision, an 8 mm left upper quadrant port and right sided 8 mm port were placed. I inspected the abdomen and there was no injury upon entry. The 10 x 15 cm ProGrip left sided mesh was placed in the abdomen as was an absorbable V-Loc stitch. The robot was docked. I inspected the abdomen. I inspected the abdomen. There was a left direct hernia. There was no significant hernia on the right. On the left side, there was an area of approximately 2 inches of mildly irritated small bowel. On either side of this was normal bowel. There was no obstruction and no twisting. Peritoneal flap was taken down with scissors. This was taken down to level of Edin's ligament and to the level of the ileopubic tract. A direct hernia was identified on the left and this was completely reduced. A small femoral hernia was identified and was completely reduced. The round ligament was divided. Hemostasis was assured. The mesh was then made to lie flat. The peritoneal flap was reapproximated with an absorbable V-Loc stitch. The small defect in the flap at the site of the round ligament was repaired with a running absorbable V-Loc stitch as well. Hemostasis was assured. Ports were removed under direct vision. Hemostasis was assured. Pneumoperitoneum was released. Final port was removed. All skin incisions were closed with 4-0 Monocryl subcuticular stitches. More local analgesia was injected. Appropriate dressings were applied. The patient tolerated the procedure well. There were no complications. FAISAL
[2019-05-25] MEDS ORDERED: ACETAMINOPHEN(*)1000 MG/100 ML 100 ML IVPB ONE (11:06)
[2019-05-25] MEDS ORDERED: traMADol 50 MG TAB PO ONE (13:05)
[2019-05-25] MEDS ORDERED: ALBUTEROL/IPRATROPIUM 3 ML NEB NEB ONE (14:05)
[2019-05-25] MEDS ORDERED: ALBUTEROL/IPRATROPIUM 3 ML NEB ONE (14:06)
--- NOTE | 2019-05-25 14:10 | NUR ---
pt oxygen dropping below 90, down to 86% on room air, encouraging pt to cough and deep breath, pt lung sounds diminished, Dr. Hoover notified, new orders to complete duo neb and aerobica. update Dr. Hoover if interventions are not effective.
--- NOTE | 2019-05-25 15:16 | NUR ---
pt received duoneb from cardiopulminary therapy and completed aerobica training, patient able to maintain oxygen 90-93% on room air for 20 minutes. pt requests to be discharged, discharge instructions completed to patient and her son. son to stay with patient for next 24 hours.
== END 2019-05-25 11:30 | disposition home or self-care (01) ==
LOC: OR 01:31
PROVIDERS: ATTEND Surgery
DX: K40.90 Unilateral inguinal hernia, without obstruction or gangrene, not specified as recurrent (principal); K41.90 Unilateral femoral hernia, without obstruction or gangrene, not specified as recurrent; Z87.891 Personal history of nicotine dependence
CPT/HCPCS: 49650; 94640; 94667; A9270; C1781; J0131; J1100; J2001; J2250; J2405; J2704; J3010; J3490; J7620; S2900; J0690